=== PATIENT | female | born 1960 | race Caucasian/White ===

== ENCOUNTER 2023-06-20 15:30 | Emergency (ER) | payer OTHER, SELFPAY ==
[2023-06-20 16:08] VITALS: BP 141/88
[2023-06-20 16:46] LABS: % Eosinophils 4.3 % (0-6); % Immature Granulocytes 0.1 % (0-0.5); % Lymphocytes 35.5 % (20.5-51.1); % Monocytes 11.5 % (1.7-9.3); % Neutrophils 47.6 % (42.2-75.2); Absolute Basophils 0.1 10^3/uL (0-0.2); Absolute Eosinophils 0.3 10^3/uL (0-0.7); Absolute Lymphocytes 2.6 10^3/uL (1.2-3.4); Absolute Monocytes 0.9 10^3/uL (0.1-0.6); Absolute Neutrophils 3.5 10^3/uL (1.4-6.5); Hematocrit 40.4 % (37.0-47.0); Hemoglobin 14.5 g/dL (12.0-16.0); Mean Corp Hgb Conc. 35.9 g/dL (33.0-37.0); Mean Corpuscular Hgb 31.6 pg (27.0-31.0); Mean Platelet Volume 8.7 fL (7.4-10.4); Nucleated Red Blood Cells % 0 %; Platelet Count 350 10^3/uL (130-400); Red Blood Cell Count 4.59 10^6/uL (4.20-5.40); Red Cell Dist. Width 11.5 % (11.5-14.5); White Blood Cell Count 7.4 10^3/uL (4.8-10.8)
[2023-06-20 16:56] LABS: COVID-19 Antigen Negative (Negative)
[2023-06-20 16:57] LABS: ALT (SGPT) 22 U/L (0-35); AST (SGOT) 24 U/L (14-36); Albumin 4.3 g/dl (3.5-5.0); Alkaline Phosphatase 45 U/L (38-126); Blood Urea Nitrogen 15 mg/dl (7-17); Calcium 9.5 mg/dl (8.4-10.2); Carbon Dioxide 28 mmol/L (22-30); Chloride 92 mmol/L (98-107); Glucose 99 mg/dl (70-99); Sodium 129 mmol/L (135-145); Total Bilirubin 1.6 mg/dl (0.2-1.3); Total Protein 6.6 g/dl (6.3-8.2); eGFR > 60.00
[2023-06-20 20:04] VITALS: BP 120/59; BMI 27.0
--- NOTE | 2023-06-20 20:12 | EDRN ---
Pt says on the or of this month she developed L rib pain into her back. Pt went to her doctor and says the doctor 'was not impressed.' Next day pt started with vomiting that lasted 6 days. Pt had diarrhea on the first day of vomiting,
none since. Pt went back to her doctor on the and was given fasting blood work Rx which she has not been able to do because 'I've been feeling so bad.' Pt says she has been exhausted, sleeping 4 hours at a time, getting up to do something
briefly then has to go back to sleep. Pt feels lightheaded when she gets up. Pt is able to eat and drink but notes decreased appetite. Two days ago pt noted a sore on her L buttock and she put neosporin on it. Pt denies fever/chills/cough, cp,
sob, abd pain, urinary symptoms, n/v/d/constipation now. Pt reports weight loss of 10 lbs in 10 days. No ill contacts or recent trauma.
--- NOTE | 2023-06-20 20:41 | ED.GENMED ---
History of Present Illness
General
Chief Complaint: Abdominal Pain
Source: patient
Exam Limitations: none
Time Seen by Provider: 06/20/23 20:13
Travel History
Have you had any contact with someone who has COVID-19?: No
Do you have any symptoms of coronavirus? Fever > 100 degrees, chills, cough, shortness of breath, sore throat, loss of taste or smell, muscle aches, or headache?: No
History of Present Illness
History of Present Illness:
63-year-old female with history of hypertension presents complaining of ongoing left upper quadrant and left rib pain for about 10 days. At the onset of the pain she also was vomiting for about 6 days. She estimates she lost about 10 pounds in the
last 10 days. She notes extreme fatigue associated with this as well. No measurable fever. No recent long travel. Pain is not pleuritic. Pain is not worse with eating. No associated urinary symptoms. No other complaints at this time
Past History
Past History
ED Past Medical History: HTN
ED Past Surgical History: Negative Cardiac
Social History
Tobacco: Non-smoker
Alcohol: Occasional
Drug: None
Personal:
Living: with family
Employment: Employed
Family History
Family History: Negative Early CAD
Phy Exam
Physical Exam
Physical Exam:
General: Well-appearing female no acute respiratory distress
HEENT: Normocephalic atraumatic neck is supple mucosa dry
Heart: Regular rate and rhythm no murmurs
Lungs: Clear to auscultation bilaterally no wheezing
Abd: Soft, tender to LUQ. Musculoskeletal exam: The patient is tender over the anterior lateral left ribs without step-off or deformity. No overlying rash
Extremities: No cyanosis
Course
Orders/Labs/Results
Orders:
Orders
06/20/23 16:19
COVID-19 Antigen Urgent
Source: Nasal Swab
Complete Blood Count/With Diff Urgent
Comprehensive Metabolic Panel Urgent
Lipase Urgent
Comment: ADD ON
06/20/23 20:26
CT Abd/pelvis W Iv Cont Urgent
Comment:
Reason For Exam: abdominal pain
0.9% Sodium Chloride 1000 ml [Nss] 1,000 ml IV BOLUS
Ketorolac [Toradol] 15 mg IV NOW STA
06/20/23 20:38
Add On- LAB Urgent
Tests Added?: lipase
06/20/23 20:51
Urinalysis Reflex To Culture Urgent
Abnormal Lab Results
06/20/23
16:19
MCH 31.6 H pg
(27.0-31.0)
Absolute Monos (auto) 0.9 H 10^3/uL
(0.1-0.6)
Monocytes % 11.5 H %
(1.7-9.3)
Sodium 129 L mmol/L
(135-145)
Chloride 92 L mmol/L
(98-107)
Total Bilirubin 1.6 H mg/dl
(0.2-1.3)
06/20/23 16:19
06/20/23 16:19
Vital Signs
Initial and Last Documented VS:
Initial Vital Signs
Temp Pulse Resp BP Pulse Ox
98.6 F 73 20 141/88 97
06/20/23 16:08 06/20/23 16:08 06/20/23 16:08 06/20/23 16:08 06/20/23 16:08
Last Documented Vital Signs
Temp Pulse Resp BP Pulse Ox
99.1 F 63 16 133/64 98
06/20/23 20:04 06/20/23 21:51 06/20/23 21:51 06/20/23 21:51 06/20/23 21:51
*Critical Care Note
Total Time (30-74mins, 75-104mins- exclusive of procedures): Not Applicable
Update Note
Update Note:
Left upper quadrant/chest wall discomfort. No PE risk factors pain is not pleuritic vital signs are stable. Slightly tender to the abdomen on exam. Question possible abdominal wall strain versus chest wall strain. Will order CT scan to evaluate
colon and spleen.
CT of abdomen pelvis negative for acute finding. Patient does have reproducible chest wall tenderness suspect possible chest wall strain versus costochondritis. She was slightly hyponatremic today with a sodium of 129. This is likely hypovolemic
secondary to the recent vomiting. She was given a liter of fluids and is feeling slightly improved. Will recommend NSAIDs for her chest wall discomfort. Stable for
ED Attending Note
-
Portions of this chart may have been created with voice recognition software.� Occasional wrong word or��sound alike� substitutions may have occurred due to the inherent limitations of voice recognition software.
Discharge Plan
Departure
Patient Disposition: Home (Routine Discharge)
Date of Disposition: 06/20/23
Time of Disposition: 23:06
Patient with high blood pressure during this ER visit?: No
Discharge Problem:
Strain of chest wall
Instructions: Costochondritis (DC)
Prescriptions:
New
meloxicam 7.5 mg tablet
7.5 mg PO BID Qty: 14 0RF
No Action
propranolol 10 MG tablet
10 mg PO DAILY
multivitamin 1 EACH tablet
1 tab PO DAILY
Vitamin D3:
100 mcg PO DAILY
magnesium 250 mg Tablet
500 mg PO DAILY
duloxetine 40 mg Capsule,Delayed Release(Dr/Ec)
40 mg PO DAILY
Ubrelvy 50 mg Tablet
50 mg PO DAILYPRN PRN (Reason: migraine)
Vitamin B-12
1 tab PO DAILY
Referrals:
Hussein Rea MD [Family Provider] -
Activity Restrictions/Additional Instructions:
Use anti-inflammatory for discomfort. Continue Zofran if needed for nausea. Please return here for worsening symptoms otherwise follow-up with family doctor
Interventions
Interventions:
*Risk Screen - Suicide Last Done: 06/20/23 20:04
*General Assessment Last Done: 06/20/23 20:04
*Neglect/Abuse Screening Last Done: 06/20/23 20:04
*ED COVID-19 Vaccine History Last Done: 06/20/23 21:51
ES-Qrhaww-Cofzmtotit Assessment Last Done: 06/20/23 20:04
[2023-06-20] MEDS: NSS 1000 IV (20:46)
[2023-06-20] MEDS: TORADOL 15 MG IV (20:48)
[2023-06-20 21:11] LABS: Lipase 81 U/L (23-300)
[2023-06-20 21:51] VITALS: BP 133/64
== END 2023-06-20 23:19 | disposition home or self-care (01) ==
LOC: EMR 15:30
PROVIDERS: Emergency Medicine; EMERGENCY PHYSICIAN Student in an Organized Health Care Education/Training Program; FAMILY PHYSICIAN Internal Medicine
DX: S29.011A Strain of muscle and tendon of front wall of thorax, initial encounter (principal); R11.10 Vomiting, unspecified; R53.83 Other fatigue; X58.XXXA Exposure to other specified factors, initial encounter; Z11.52 Encounter for screening for COVID-19; I10 Essential (primary) hypertension; Z88.6 Allergy status to analgesic agent; Z91.012 Allergy to eggs; Z91.011 Allergy to milk products; Z91.048 Other nonmedicinal substance allergy status
CPT/HCPCS: 99285; 96361; 96374; 74177; 80053; 83690; 85025; 87811; Q9967

== ENCOUNTER → 2023-07-22 14:11 | Outpatient (REF) | payer OTHER, SELFPAY | LOC: WDC 14:11 | PROVIDERS: ATTENDING PHYSICIAN Obstetrics & Gynecology Gynecology; FAMILY PHYSICIAN Internal Medicine | DX: Z12.31 Encounter for screening mammogram for malignant neoplasm of breast (principal) | CPT/HCPCS: 77063; 77067 ==

== ENCOUNTER → 2023-08-04 13:32 | Outpatient (REF) | payer OTHER, SELFPAY | LOC: RCS 13:32 | PROVIDERS: ATTENDING PHYSICIAN Internal Medicine Cardiovascular Disease; FAMILY PHYSICIAN Nurse Practitioner | DX: R07.9 Chest pain, unspecified (principal) | CPT/HCPCS: 93017; 93350 ==

== ENCOUNTER → 2023-08-06 09:01 | Outpatient (REF) | payer OTHER, SELFPAY | LOC: RAD 09:01 | PROVIDERS: ATTENDING PHYSICIAN Otolaryngology Facial Plastic Surgery; FAMILY PHYSICIAN Internal Medicine | DX: J30.1 Allergic rhinitis due to pollen (principal); R09.81 Nasal congestion; R13.12 Dysphagia, oropharyngeal phase | CPT/HCPCS: 74221 ==

== ENCOUNTER → 2024-03-17 09:50 | Outpatient (REF) | payer SELFPAY | LOC: RAD 09:50 | PROVIDERS: ATTENDING PHYSICIAN Nurse Practitioner; FAMILY PHYSICIAN Internal Medicine | DX: E78.5 Hyperlipidemia, unspecified (principal) | CPT/HCPCS: 75571 ==

== ENCOUNTER → 2024-07-05 10:02 | Outpatient (REF) | payer OTHER, SELFPAY | LOC: RAD 10:02 | PROVIDERS: ATTENDING PHYSICIAN Obstetrics & Gynecology Gynecology; FAMILY PHYSICIAN Internal Medicine | DX: Z78.0 Asymptomatic menopausal state (principal) | CPT/HCPCS: 77080 ==

== ENCOUNTER → 2024-08-03 15:59 | Outpatient (REF) | payer OTHER, SELFPAY | LOC: WDC 15:59 | PROVIDERS: ATTENDING PHYSICIAN Obstetrics & Gynecology Gynecology; FAMILY PHYSICIAN Internal Medicine | DX: Z12.31 Encounter for screening mammogram for malignant neoplasm of breast (principal) | CPT/HCPCS: 77063; 77067 ==

== ENCOUNTER → 2024-10-03 11:30 | Outpatient (REF) | payer OTHER, SELFPAY | LOC: RAD 11:30 | PROVIDERS: ATTENDING PHYSICIAN Hospitalist | DX: E04.2 Nontoxic multinodular goiter (principal) | CPT/HCPCS: 76536 ==

== ENCOUNTER 2025-02-13 11:02 | Outpatient (RCR) | payer OTHER, SELFPAY ==
[2025-02-13 11:00] VITALS: BP 106/68
[2025-02-13] MEDS: RECLAST 100 IV (11:12)
[2025-02-13 11:55] VITALS: BP 128/64
== END 2025-02-21 23:59 | disposition home or self-care (01) ==
LOC: OID 11:02
PROVIDERS: ATTENDING PHYSICIAN Internal Medicine Endocrinology, Diabetes & Metabolism; FAMILY PHYSICIAN Internal Medicine
DX: M81.0 Age-related osteoporosis without current pathological fracture (principal)
CPT/HCPCS: 96365; J3489